=== PATIENT | male | born 1965 | race Caucasian/White ===

== ENCOUNTER → 2018-05-26 09:16 | Outpatient (CLI) | payer OTHER, SELFPAY ==
--- NOTE | 2018-05-26 | DI.RAD.S_ITS ---
PROCEDURE: XR CHEST 2V INDICATIONS: COUGH/CHEST DISCOMFORT TECHNIQUE: 2 views of the chest were acquired. COMPARISON: None. FINDINGS: Surgical changes and devices: None. Lungs and pleura: No pleural effusions or pneumothorax. Lungs are clear. Mediastinum: Mediastinal contours are normal. Heart size is normal. Bones and chest wall: No suspicious bony abnormalities. Soft tissues appear unremarkable. IMPRESSION: Source of cough is not seen. Dictated by: Ozzie Marcelino M.D. on 05/26/2018 at 10:18 Approved by: Ozzie Marcelino M.D. on 05/26/2018 at 10:18
== END ==
PROVIDERS: PCP Family Medicine; Visit Provider Family Medicine
DX: R05 Cough (principal); R07.89 Other chest pain
CPT/HCPCS: 71046

== ENCOUNTER → 2018-06-21 13:52 | Outpatient (CLI) | payer OTHER, SELFPAY ==
--- NOTE | 2018-06-21 15:19 | DIET.PN ---
DIABETES Nutrition Initial Assessment:? ASSESS:???52 yom referred for type 2 diabetes seen as part of DSME program. Pt with long standing hx of pre-diabetes for 10 yrs. Reports significant weight loss at that time with changes in dietary habits as well as change in employment which increased physical activity. States he got down to 185# but reports constant feeling of hunger and anger during this process. Is most concerned with how to maintain normal BG ranges without feeling fatigued and hungry constantly. Pt prepares nearly all meals and snacks from home. ? LABS: Per pt report:? a1c: 6.1 ? MEDS:?? metformin 500mg 1x/day ? DIET: Per 24-hour recall:? B: 1 cup oatmeal, 1 cup berries, 2 eggs L: various soups (~ 24 oz) D: pro, veg Sn: homemade keto blueberry bread; cornchips w/ hummus ? Weight: 195# Ht:? 71 BMI: 27.2 (overweight) ? Exercise:? very active at work NUTRITION DX ? (1) Altered Nutrition related labs related to impaired glucose metabolism, lack of previous exposure to accurate nutrition information as evidenced by pt report, dx of diabetes, previous diet high in refined carbohydrates.? INTERVENTION(s): 1. Discussed pathophysiology of diabetes. Reviewed A1c and its correlation to blood glucose numbers. Discussed recommended BG ranges. 2. Discussed importance of self-monitoring, how often, and when to check. Provided options of glucometer for out of pocket purchase with potential lower cost strips for more consistent monitoring. 3. Reviewed hyper/hypoglycemia and treatment. 4. Reviewed safe disposal of equipment (strip/lancets/insulin needles). 5. Discussed impact of nutrition/diet on blood sugar control.? Discussed fed versus non-fed state.?? 6. Discussed the effect of carbohydrates/protein/fat on blood sugar control.? Stressed importance of consistent carbohydrate intake at each meal and provided instructions for recommended servings/portions of carbohydrates/protein per meal. Provided pt with educational material. 7. Reviewed carbohydrate counting and measuring carbohydrate content via servings sizes and reading nutrition labels.? Provided handouts.?? 8. Discussed the difference between simple versus complex carbohydrates and the effect of fiber on blood sugar control.? Discussed various methods to increase fiber content in diet. 9. Stressed importance of meal timing and not going >4-5 hours between meals. Encouraged adding protein to meals to support glucose control. Patient agreeable. 10. Discussed healthy weight loss goals of 1-2lbs per week through diet and exercise.? Pt agreeable to walking at least 30 minutes daily. 11. Created SMART goals for pt self-care and success. SMART Goals: 1. Pt will monitor BG 2x/day including daily FBG and alternating 2hr PP mealtimes to assess BG patterns. 2. Pt will read food labels and use measuring tools for measuring carbohydrates to meet recommended needs. 3. Pt agreed to keep a 5-7 food record with BG to assess where changes can be made. 4. Pt desires to be able to get off of metformin completely through dietary changes and increased physical activity. MONITOR/EVALUATE: Anticipate excellent compliance.? Nutrition follow-up scheduled for 1 month.
== END ==
PROVIDERS: PCP Family Medicine; Visit Provider Family Medicine
DX: E11.9 Type 2 diabetes mellitus without complications (principal); Z79.84 Long term (current) use of oral hypoglycemic drugs
CPT/HCPCS: 97802

== ENCOUNTER → 2018-07-20 13:48 | Outpatient (CLI) | payer OTHER, SELFPAY ==
--- NOTE | 2018-07-20 08:52 | DIET.PN ---
INDIVIDUAL NUTRITION Follow Up ASSESS: Pt seen for 1 follow up. He has been keeping a food record and purchased a glucometer and has been monitoring blood glucose 2-3x/day per recommendation. Presents slightly frustrated with sporadic readings particularly post-prandial readings from meals of the same food sources and portions. While most readings have been within normal range, FBG flags some level of concern. Pt also concerned with 20 point difference between new meter and old meter he was provided at diagnosis. Explained this is likely due to strips. He reports noticeable difference in BG when he is stressed. Also happy to report 5lb weight loss since last visit. LABS: A1c: 6.1 FB-159 2 hr PP: 116-190 ( >200x2) Wt: 190 MEDS: Reviewed. DM MEDS: metf 500mg 1x/day DIET: Per recall: Pt has cut down on starches and overly snacking. Almost completely cut out fastfood and eating out. is preparing all meals and packing lunches. Purchased food scale and has been weighing/measuring most food. Has been diligent with reading food labels and counting carbs. NUTRITION Dx (1) Altered nutrition related labs r/t type 2 DM, inconsistent carbohydrate intake as evidenced by pt report, dietary recall. INTERVENTION (1) Reviewed blood sugar log and implications/reasons for elevated/decreased blood sugar. Pt with good understanding. (2) reviewed carbohydrate counting and importance of consistent carbohydrate intake. (3) reviewed meal intake and importance of balanced meals (francisco to prevent overeating). (4) Assisted patient create a meal plan for breakfast/lunch ideas to promote consistency while working. (5) Discussed snack ideas to prevent hunger while maintaining consistent glucose control. MONITOR/EVALUATE: Pt receptive to information provided. Follow-up scheduled for 2 months to review BG, food record, weight, and discuss protein/fat/sugar subs/eating out/grocery shopping/alcohol/sick day management.
== END ==
PROVIDERS: Family Provider Family Medicine; PCP Family Medicine; Visit Provider Family Medicine
DX: E11.9 Type 2 diabetes mellitus without complications (principal)
CPT/HCPCS: 97803

== ENCOUNTER → 2018-12-08 10:54 | Outpatient (CLI) | payer OTHER, SELFPAY ==
--- NOTE | 2018-12-08 11:31 | DIET.PN ---
Dietary Progress Note Assessment: Pt seen for 2nd follow up for type 2 diabetes. He continues to monitor FBG with occasional post- prandials. Reports he was losing too much weight and was almost down to 180#. Recently started gaining some back. 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 He presents with new lab results today. Excited to report he may be able to get off of metformin. HT: 71 WT: 196 BMI: 27.3 Labs: A1c: 5.8 eA Nutrition Diagnosis: Altered nutrition related labs r/t type 2 DM, inconsistent carb intake aeb pt report, dietary recall. Interventions: 1. Discussed barriers to care including work schedule, time constraints to activity and planning ahead. Pt agreeable to exercise on his days off to help maintain glucose and weight control. 2. Pt will continue to monitor fasting and evening blood glucose. 3. Pt has decided to discontinue metformin. Recommended pt continue to measure glucose regularly to ensure glucose control. Monitoring/Evaluations: No follow up scheduled. Pt will call for an appt if extreme hyperglycemia while off of meds.
== END ==
PROVIDERS: PCP Family Medicine; Visit Provider Family Medicine
DX: E11.9 Type 2 diabetes mellitus without complications (principal)
CPT/HCPCS: 97803

== ENCOUNTER → 2019-08-03 14:39 | Outpatient (CLI) | payer OTHER, SELFPAY ==
--- NOTE | 2019-08-03 14:42 | DI.RAD.S_ITS ---
PROCEDURE: XR KNEE LT 3V INDICATIONS: knee pain TECHNIQUE: 3 views of the knee were acquired. COMPARISON: None. FINDINGS: Bones: No fractures or dislocations. No suspicious bony lesions. Mild patellofemoral joint space narrowing. Soft tissues: No joint effusion. No suspicious soft tissue calcifications. IMPRESSION: Mild left knee joint degeneration Dictated by: Regulo Mcclain M.D. on 08/03/2019 at 18:03 Approved by: Regulo Mcclain M.D. on 08/03/2019 at 18:04
--- NOTE | 2019-08-03 14:42 | DI.RAD.S_ITS ---
PROCEDURE: XR KNEE RT 3V INDICATIONS: knee pain TECHNIQUE: 3 views of the knee were acquired. COMPARISON: [facility], CR, XR KNEE LT 3V, 08/03/2019, 14:39. FINDINGS: Bones: No fractures or dislocations. No suspicious bony lesions. Chronic appearing bipartite patella. Scattered degenerative subchondral sclerosis and spurring. Soft tissues: No joint effusion. No suspicious soft tissue calcifications. IMPRESSION: Mild right knee joint degeneration Chronic bipartite patella Dictated by: Regulo Mcclain M.D. on 08/03/2019 at 17:55 Approved by: Regulo Mcclain M.D. on 08/03/2019 at 17:57
--- NOTE | 2019-08-03 14:42 | DI.RAD.S_ITS ---
PROCEDURE: XR LUMBAR SPINE MIN 4V INDICATIONS: LOW BACK PAIN TECHNIQUE: 5 views of the lumbar spine were acquired. COMPARISON: [facility], , L-SPINE 2-3 VIEWS, 11/14/2015, 7:22. FINDINGS: Bones: No fracture or focal osseous destruction. Multilevel degenerative endplate sclerosis and spurring. Diffuse facet arthropathy. Trace retrolisthesis of L1 on L2, unchanged. Diffuse mild narrowing of lumbar disc spaces. Mild bilateral hip joint degeneration. Sacroiliac joints appear grossly intact Soft tissues: Overlying bowel gas pattern is normal. No suspicious soft tissue calcifications. Oblique images: No pars defects. IMPRESSION: Diffuse lumbar spondylosis and facet arthropathy, grossly unchanged as above Dictated by: Regulo Mcclain M.D. on 08/03/2019 at 16:50 Approved by: Regulo Mcclain M.D. on 08/03/2019 at 16:52
== END ==
PROVIDERS: PCP Family Medicine; Referring Provider Physical Medicine & Rehabilitation; Visit Provider Physical Medicine & Rehabilitation
DX: M54.5 Low back pain (principal); M47.816 Spondylosis without myelopathy or radiculopathy, lumbar region; M25.561 Pain in right knee; Q74.1 Congenital malformation of knee; M17.11 Unilateral primary osteoarthritis, right knee; G89.29 Other chronic pain
CPT/HCPCS: 72110; 73562

== ENCOUNTER → 2020-02-01 09:49 | Outpatient (CLI) | payer OTHER, SELFPAY ==
--- NOTE | 2020-02-01 | DI.RAD.S_ITS ---
PROCEDURE: XR SHOULDER LT MIN 2V INDICATIONS: Left shoulder pain TECHNIQUE: 3 views of the shoulder were acquired. COMPARISON: [facility], SHOULDER MINIMUM 2VIEW RIGHT, 06/19/2016, 9:43. [facility], SHOULDER MINIMUM 2 VIEW LEFT, 06/19/2016, 9:41. FINDINGS: Bones: No fractures or dislocations. No suspicious bony lesions. Visualized ribs appear intact. Mild to moderate acromioclavicular joint and glenohumeral joint osteoarthritis. Soft tissues: No suspicious soft tissue calcifications. IMPRESSION: 1. No fracture. No acute osseous lesion. If symptoms and/or clinical suspicion for pathology persists, further assessment with repeat radiographs (7-10 days) or advanced imaging (e.g. CT, MRI or bone scan) may be helpful. 2. Mild to moderate acromioclavicular joint and glenohumeral joint osteoarthritis. Dictated by: Marci Freitas MD, PhD on 02/01/2020 at 11:50 Approved by: Marci Freitas MD, PhD on 02/01/2020 at 11:50
== END ==
PROVIDERS: PCP Family Medicine; Referring Provider Family Medicine; Visit Provider Family Medicine
DX: M25.512 Pain in left shoulder (principal); M19.012 Primary osteoarthritis, left shoulder
CPT/HCPCS: 73030

== ENCOUNTER 2024-04-26 17:22 | Emergency (ER) | payer OTHER, SELFPAY ==
[2024-04-26] VITALS (7 sets, daily range): BP systolic 134–163; BP diastolic 75–84; PULSE 63–82; RESP 14–23; TEMP 37.5; O2SAT 96–97; BMI 25.1
--- NOTE | 2024-04-26 18:11 | DI.CT.S_ITS ---
PROCEDURE: CT ABDOMEN PELVIS W CON INDICATIONS: R sided abdominal pain TECHNIQUE: After the administration of intravenous contrast, axial sections acquired from the lung bases to the pubic symphysis. Coronal and sagittal reformats were performed. For radiation dose reduction, the following was used: automated exposure control, adjustment of mA and/or kV according to patient size. COMPARISON: [facility], CT, ABDOMEN/PELVIS WITH CONTRAST, 05/09/2017, 11:40. FINDINGS: Image quality: Diagnostic. Lower Chest: No significant findings. ABDOMEN: Liver: No solid mass. Diffuse fatty liver infiltration is noted. Gallbladder: No radiopaque gallstones or wall thickening. Biliary ducts: No biliary dilation. Pancreas: No ductal dilation. Spleen: Size is within normal limits. Adrenal Glands: No adrenal nodules. Kidneys and Ureters: There is at least moderate right-sided hydronephrosis and hydroureter. There is an obstructing stone seen within the right proximal ureter, as on series 2, image 86 and on series 4, image 47, measuring 7 mm and 1000 Hounsfield units. There is right-sided perinephric fat stranding. There is a delayed nephrogram seen on the right. No definite nonobstructing kidney stones can be seen on either side. No left-sided hydronephrosis is seen. Stomach and Bowel: Normal colonic caliber, without significant wall thickening. A normal appendix is noted. No dilated loops of small bowel are seen. Peritoneum: No abnormal intraperitoneal fluid. No free air. Ventral Wall: No significant ventral hernia. Abdominal Nodes: No retroperitoneal or mesenteric adenopathy by size criteria. Vessels: Aorta and inferior vena cava are normal in size. PELVIS: Pelvic Organs: Unremarkable. Bladder: No bladder wall thickening, accounting for underdistention. Pelvic Nodes: No enlarged lymph nodes. Miscellaneous: No inguinal hernias are seen. Bones: No aggressive osseous abnormality. Age-appropriate bony degenerative changes are seen, which are worst at L5-S1. IMPRESSION: 7 mm obstructing stone within the right mid ureter, with hydroureter, hydronephrosis, and obstructive findings on the right. No nonobstructing kidney stones can be seen on either side. Normal appendix. Additional findings: Fatty liver infiltration Focal L5-S1 degenerative change Dictated by: Carmine Delgadillo M.D. on 04/26/2024 at 18:56 Approved by: Carmine Delgadillo M.D. on 04/26/2024 at 18:59
--- NOTE | 2024-04-26 19:22 | ED_ITS ---
HPI - General Adult General Chief complaint: Abdominal Pain Stated complaint: rt sided pain Time Seen by Provider: 04/26/24 18:10 Source: patient Mode of arrival: Ambulatory History of Present Illness HPI narrative: Patient was a 58-year-old male who is here for evaluation of approximately 24 hours of right-sided flank pain. He states that it was not worse with palpation. Some positions make it worse than others but it has been pretty persistent over the past week. No problems urinating. No vomiting. No fevers. No change in bowel habits. Urinating does not change the discomfort. Has had bilateral inguinal hernia repairs years ago but no other abdominal surgeries. He states Tylenol does seem to help with the discomfort quite a bit. No chest pain,Shortness of breath or skin changes. Related Data Home Medications Medication Instructions Recorded Confirmed metformin 500 mg tablet 500 mg PO DAILY 08/13/19 08/13/19 naproxen sodium 220 mg capsule 440 mg PO DAILY PRN 08/13/19 08/13/19 (Aleve) Previous Rx's Medication Instructions Recorded hydrocodone 5 mg-acetaminophen 325 1 tab PO Q4-6H PRN pain #10 tabs 04/26/24 mg tablet ondansetron 4 mg disintegrating 4 mg PO Q6H PRN nausea and 04/26/24 tablet vomiting #10 tabs tamsulosin 0.4 mg capsule (Flomax) 0.4 mg PO DAILY #14 caps 04/26/24 Allergies Allergy/AdvReac Type Severity Reaction Status Date / Time No Known Drug Allergies Allergy Unverified 08/13/19 15:10 Review of Systems Review of Systems ROS Unobtainable: All systems reviewed & are unremarkable except as noted in HPI and below Patient History Medical History 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 Shoulder impingement syndrome H/O fracture of wrist Surgical History H/O hernia repair H/O thumb surgery Family History Unknown No pertinent family history Social History Smoking Status: Never smoker Smoking Status: Never smoker alcohol intake frequency: other Substance Use Type: does not use Exam Initial Vital Signs Initial Vital Signs: Vital Signs Temperature 99.5 F 04/26/24 17:59 Pulse Rate 82 04/26/24 17:59 Respiratory Rate 14 04/26/24 17:59 Blood Pressure 134/75 04/26/24 17:59 Pulse Oximetry 97 04/26/24 17:59 Oxygen Delivery Method Room Air 04/26/24 17:59 Resp Effort & Inspection: normal respiratory effort Cardio Rate: regular rate GI Inspection: normal to inspection and non-distended Palpation: soft, No firm, No guarding and No tender Back/Spine/Pelvis Back: No CVA tenderness Skin General: no rashes or lesions noted Neuro General: patient alert and patient awake Course Orders Ordered: ED Orders 04/26/24 18:11 CT abdomen pelvis w con Stat 04/26/24 19:10 Complete Blood Count AUTO DIFF Stat Comprehensive Metabolic Panel Stat Lipase Stat Discontinued Medications Hydrocodone Bitart/Acetaminophen (Hydrocodone/Acet 5/325 Prepack) 1 bottle MISC DIRECTED ONE Stop: 04/26/24 20:37 Last Admin: 04/26/24 20:51 Dose: 1 bottle Documented By: JEFFRY Acetaminophen (Ofirmev) 1,000 mg in 100 mls @ 400 mls/hr IV NOW ONE Stop: 04/26/24 19:36 Last Infusion: 04/26/24 20:08 Dose: Infused Documented By: Admin: 04/26/24 19:43 Dose: 400 mls/hr Documented By: KINGSLEY Ondansetron HCl (Ondansetron 4 Mg/2 Ml Inj) 4 mg IV NOW PRN PRN Reason: Nausea And Vomiting Ondansetron HCl (Ondansetron 4 Mg Odt) 4 mg PO NOW PRN PRN Reason: Nausea And Vomiting Ondansetron HCl (Ondansetron 4 Mg Odt Prepack) 1 bottle MISC DIRECTED ONE Stop: 04/26/24 20:37 Last Admin: 04/26/24 20:51 Dose: 1 bottle Documented By: JEFFRY Tamsulosin HCl (Tamsulosin 0.4 Mg Capsule) 0.4 mg PO NOW ONE Stop: 04/26/24 20:37 Last Admin: 04/26/24 20:51 Dose: 0.4 mg Documented By: JEFFRY Vital Signs Vital signs: Vital Signs - 8 hr 04/26/24 17:59 04/26/24 18:54 04/26/24 18:55 Temperature 99.5 F Pulse Rate 82 74 63 Respiratory Rate 14 Blood Pressure 134/75 Pulse Oximetry 97 97 97 Oxygen Delivery Method Room Air 04/26/24 19:00 04/26/24 19:00 04/26/24 19:16 Temperature Pulse Rate 65 68 Respiratory Rate 19 23 Blood Pressure 158/83 H Pulse Oximetry 97 97 Oxygen Delivery Method 04/26/24 19:30 04/26/24 19:30 04/26/24 20:58 Temperature Pulse Rate 67 76 Respiratory Rate 19 18 Blood Pressure 163/84 H 144/76 H Pulse Oximetry 96 96 Oxygen Delivery Method Room Air Medical Decision Making Lab Data Lab results reviewed: Yes I reviewed the patient's lab results. 04/26/24 19:10 04/26/24 19:10 Labs: Lab Results 04/26/24 Range/Units 19:10 WBC 13.3 H (4.5-11.0) X10^3/uL RBC 5.05 (4.5-5.9) X10^6/uL Hgb 15.2 (13.5-17.5) g/dL Hct 44.3 (41-53) % MCV 87.6 (80-100) fL MCH 30.2 (26-34) PG MCHC 34.4 (30-36) % RDW 12.3 (11.6-14.8) % Plt Count 218 (150-400) X10^3/uL Neut % (Auto) 78.8 H (50-75) % Lymph % (Auto) 10.6 L (25-40) % Cannon % (Auto) 9.0 (3-14) % Eos % (Auto) 0.9 L (2-4) % Baso % (Auto) 0.7 (0-2) % Neut # (Auto) 04133 H (9551-6454) /uL Lymph # (Auto) 1400 (5777-3731) /uL Cannon # (Auto) 1200 H (0-900) /uL Eos # (Auto) 100 (0-450) /uL Baso # (Auto) 100 (0-100) /uL Sodium 136 L (137-145) mmol/L Potassium 4.3 (3.4-5.1) mmol/L Chloride 102 (98-107) mmol/L Carbon Dioxide 27 (22-32) mmol/L BUN 34 H (9-20) mg/dL Creatinine 1.61 H (0.66-1.25) mg/dL Estimated GFR 49 L (>60) mL/min BUN/Creatinine Ratio 21.1 (6-22) Glucose 346 H (80-110) mg/dL Calcium 9.2 (8.4-10.2) mg/dL Total Bilirubin 0.6 (0.2-1.3) mg/dL AST 30 (17-59) IU/L ALT 24 (<50) IU/L Alkaline Phosphatase 90 (38-126) U/L Total Protein 7.1 (6.3-8.2) g/dL Albumin 4.5 (3.5-5.0) g/dL Globulin 2.6 (1.7-4.1) g/dL Albumin/Globulin Ratio 1.7 (1.0-2.8) Lipase 113 (23-300) U/L Urine Dip Bedside Urine Glucose 1000 mg/dl Bedside Urine Bilirubin - Negative Bedside Urine Ketone - Negative Urine Specific [place] 1.015 Bedside Urine Occult Blood - Negative Bedside Urine pH 5.5 Bedside Urine Protein - Negative Bedside Urine Urobilinogen - Negative Bedside Urine Nitrite - Negative Bedside Urine Leukocytes - Negative Esterase Point of care testing: Urine Dip Bedside Urine Glucose 1000 mg/dl Bedside Urine Bilirubin - Negative Bedside Urine Ketone - Negative Urine Specific [place] 1.015 Bedside Urine Occult Blood - Negative Bedside Urine pH 5.5 Bedside Urine Protein - Negative Bedside Urine Urobilinogen - Negative Bedside Urine Nitrite - Negative Bedside Urine Leukocytes - Negative Esterase Imaging Data CT scan - abdomen/pelvis: Radiologist's Impression: PROCEDURE: CT ABDOMEN PELVIS W CON INDICATIONS: R sided abdominal pain TECHNIQUE: After the administration of intravenous contrast, axial sections acquired from the lung bases to the pubic symphysis. Coronal and sagittal reformats were performed. For radiation dose reduction, the following was used: automated exposure control, adjustment of mA and/or kV according to patient size. COMPARISON: [facility], CT, ABDOMEN/PELVIS WITH CONTRAST, 05/09/2017, 11:40. FINDINGS: Image quality: Diagnostic. Lower Chest: No significant findings. ABDOMEN: Liver: No solid mass. Diffuse fatty liver infiltration is noted. Gallbladder: No radiopaque gallstones or wall thickening. Biliary ducts: No biliary dilation. Pancreas: No ductal dilation. Spleen: Size is within normal limits. Adrenal Glands: No adrenal nodules. Kidneys and Ureters: There is at least moderate right-sided hydronephrosis and hydroureter. There is an obstructing stone seen within the right proximal ureter, as on series 2, image 86 and on series 4, image 47, measuring 7 mm and 1000 Hounsfield units. There is right-sided perinephric fat stranding. There is a delayed nephrogram seen on the right. No definite nonobstructing kidney stones can be seen on either side. No left- sided hydronephrosis is seen. Stomach and Bowel: Normal colonic caliber, without significant wall thickening. A normal appendix is noted. No dilated loops of small bowel are seen. Peritoneum: No abnormal intraperitoneal fluid. No free air. Ventral Wall: No significant ventral hernia. Abdominal Nodes: No retroperitoneal or mesenteric adenopathy by size criteria. Vessels: Aorta and inferior vena cava are normal in size. PELVIS: Pelvic Organs: Unremarkable. Bladder: No bladder wall thickening, accounting for underdistention. Pelvic Nodes: No enlarged lymph nodes. Miscellaneous: No inguinal hernias are seen. Bones: No aggressive osseous abnormality. Age-appropriate bony degenerative changes are seen, which are worst at L5-S1. IMPRESSION: 7 mm obstructing stone within the right mid ureter, with hydroureter, hydronephrosis, and obstructive findings on the right. No nonobstructing kidney stones can be seen on either side. Normal appendix. MDM Narrative Medical decision making narrative: CT scanShows a mid ureter 7 mm stone with mild hydro. Urinalysis is not consistent with a urinary tract infection. He does have a slightly elevated creatinine and a low GFR however I have no prior studies to compare this to. Patient was tolerating oral intake. Reports a vast improvement of symptoms with IV Tylenol. I did discuss the case with Dr. Ahumada Urology on-call with the [facility] who states that given the patient's presentation today and labs he can follow-up as an outpatient. No indication for antibiotics. I discussed all this with the patient and his is at bedside. He was given a dose of Flomax. Will discharge home with a prescription for this. Will discharge home with prescription for pain medication and nausea medication. He was given contact information for follow-up with Urology. He was given very strict return precautions. He was also informed that he needs to follow up with his primary doctor to redraw his kidney function once the ureteral stone has passed further evaluate his kidney function today. He expressed understanding and agreement with plan. Discharge Plan Departure Patient Disposition: Home Clinical Impression: Renal colic on right side Instructions: Kidney Stones (Alternative Therapy), Kidney Stones -- Adult Activity Restrictions/Additional Instructions: Take the pain medicine and nausea medication as needed. Take the tamsulosin / Flomax on a daily basis until you pass the stone. If you have not passed the stone by Tuesday of next week contact the urology department with the number provided below. If you have pain or nausea that it was not controlled, fevers or inability to urinate please return to the emergency department for further evaluation. Prescriptions: New tamsulosin [Flomax] 0.4 mg capsule 0.4 mg PO DAILY Qty: 14 0RF ondansetron 4 mg tablet,disintegrating 4 mg PO Q6H PRN (Reason: nausea and vomiting) Qty: 10 0RF hydrocodone-acetaminophen 5-325 mg tablet 1 tab PO Q4-6H PRN (Reason: pain) Qty: 10 0RF No Action metformin 500 mg tablet 500 mg PO DAILY naproxen sodium [Aleve] 220 mg capsule 440 mg PO DAILY PRN Referrals: Lui Portillo MD [Physician] - Karel Montez MD [Primary Care Provider] - Stand Alone Forms: Patient Portal/API/Survey
[2024-04-26 19:23] LABS: Add Manual Diff / Slide Review NO; Basophils Absolute Auto 100 /uL (0-100); Basophils Percent Auto 0.7 % (0-2); Eosinophils Absolute Auto 100 /uL (0-450); Eosinophils Percent Auto 0.9 % (2-4); Hematocrit 44.3 % (41-53); Hemoglobin 15.2 g/dL (13.5-17.5); Lymphocytes Absolute Auto 1400 /uL (1100-4500); Lymphocytes Percent Auto 10.6 % (25-40); Mean Corpuscular HGB Conc 34.4 % (30-36); Mean Corpuscular Hemoglobin 30.2 PG (26-34); Mean Corpuscular Volume 87.6 fL (80-100); Monocytes Absolute Auto 1200 /uL (0-900); Neutrophils Absolute Auto 10500 /uL (1500-7000); Neutrophils Percent Auto 78.8 % (50-75); Platelet Count 218 X10^3/uL (150-400); Red Blood Cell Count 5.05 X10^6/uL (4.5-5.9); Red Cell Distribution Width 12.3 % (11.6-14.8); White Blood Cell Count 13.3 X10^3/uL (4.5-11.0)
[2024-04-26 19:31] LABS: Alanine Aminotransferase 24 IU/L (<50); Albumin 4.5 g/dL (3.5-5.0); Albumin Globulin Ratio 1.7 (1.0-2.8); Alkaline Phosphatase 90 U/L (38-126); Aspartate Aminotransferase 30 IU/L (17-59); BUN Creatinine Ratio 21.1 (6-22); Bilirubin Total 0.6 mg/dL (0.2-1.3); Blood Urea Nitrogen 34 mg/dL (9-20); Calcium 9.2 mg/dL (8.4-10.2); Carbon Dioxide 27 mmol/L (22-32); Chloride 102 mmol/L (98-107); Estimated Glomerular Filt Rate 49 mL/min (>60); Globulin 2.6 g/dL (1.7-4.1); Glucose 346 mg/dL (80-110); HEMOLYSIS < 15 (0-50); Lipase 113 U/L (23-300); Potassium 4.3 mmol/L (3.4-5.1); Sodium 136 mmol/L (137-145); Total Protein 7.1 g/dL (6.3-8.2)
[2024-04-26] MEDS: ACETAMINOPHEN IV 1,000 MG/100 ML VIAL 400 MG IV (19:43)
[2024-04-26] MEDS: TAMSULOSIN 0.4 MG CAPSULE PO (20:51)
[2024-04-26] MEDS: HYDROCODONE/ACET 5/325 PREPACK 1 BOTTLE MISC (20:51)
[2024-04-26] MEDS: ONDANSETRON 4 MG ODT PREPACK 1 BOTTLE MISC (20:51)
== END 2024-04-26 21:02 | disposition home or self-care (01) ==
PROVIDERS: Emergency Medicine; Emergency Provider Emergency Medicine; PCP Family Medicine
DX: N13.2 Hydronephrosis with renal and ureteral calculous obstruction (principal)
CPT/HCPCS: 36415; 74177; 80053; 81003; 83690; 85025; 96365; 99284; 99285; J0134; Q9967

== ENCOUNTER → 2024-05-28 09:45 | Outpatient (CLI) | payer OTHER, SELFPAY ==
[2024-05-28 11:19] LABS: Alanine Aminotransferase 19 IU/L (<50); Albumin 4.8 g/dL (3.5-5.0); Albumin Globulin Ratio 1.9 (1.0-2.8); Alkaline Phosphatase 74 U/L (38-126); Aspartate Aminotransferase 23 IU/L (17-59); BUN Creatinine Ratio 25.6 (6-22); Bilirubin Total 0.9 mg/dL (0.2-1.3); Blood Urea Nitrogen 23 mg/dL (9-20); Calcium 9.7 mg/dL (8.4-10.2); Carbon Dioxide 29 mmol/L (22-32); Chloride 102 mmol/L (98-107); Cholesterol 241 mg/dL (140-199); Estimated Glomerular Filt Rate > 60 mL/min (>60); Globulin 2.5 g/dL (1.7-4.1); Glucose 249 mg/dL (80-110); HDL Cholesterol 54 mg/dL (40-60); HEMOLYSIS < 15 (0-50); LDL Cholesterol Calculated 160 mg/dL (<100); Sodium 139 mmol/L (137-145); Total Protein 7.3 g/dL (6.3-8.2); Triglycerides 137 mg/dL (35-150); VLDL Cholesterol Calculated 27 mg/dL (2-30)
[2024-05-28 11:28] LABS: Creatinine Urine Random 151.91 mg/dL
[2024-05-28 11:33] LABS: Microalbumin Urine Random 1.9 mg/dL (0-1.6)
== END ==
PROVIDERS: PCP Family Medicine; Referring Provider Family Medicine; Visit Provider Family Medicine
DX: E11.65 Type 2 diabetes mellitus with hyperglycemia (principal); E11.59 Type 2 diabetes mellitus with other circulatory complications; I15.2 Hypertension secondary to endocrine disorders
CPT/HCPCS: 36415; 80053; 80061; 82043; 82570